=== PATIENT | male | born 1955 | race African-American/Black ===

== ENCOUNTER 2021-12-09 15:24 | Emergency (ER) | payer MEDICARE, MEDICAID ==
[~2021-12-09] VITALS: Ht 177.8 cm; Wt 85.0 kg
[~2021-12-09 15:24] MED LIST: ALBU2.5V13 NEB; AMLO10TA80 PO; CYAN100069 PO; DOCU-138 PO; FOLI-43 PO; HYDR-3927 PO; MEMA5TAB7 PO; MINO2.5T2 PO; PYRI25TA4 PO; RISP05 PO; SENN-257 PO; TEMA15CA PO; TOPUD PO; TRAM50TA3 PO
[2021-12-09 17:27] LABS: BASOPHILS % 0.8 % (0.0-2.0); EOSINOPHILS % 2.8 % (0.0-5.0); HEMATOCRIT. 41.3 % (42.0-52.0); HEMOGLOBIN. 13.5 g/dL (14.0-18.0); LYMPHOCYTES % 19.2 % (20.0-50.0); MEAN CORPUSCULAR HEMOGLOBIN 30.2 pg (28.0-32.0); MEAN CORPUSCULAR VOLUME 92.6 fL (80.0-94.0); MEAN PLATELET VOLUME 8.7 fl (7.4-10.4); MONOCYTES % 10.7 % (2.0-8.0); NEUTROPHILS % 66.5 % (40.0-76.0); PLATELET 139 x1000/uL (130-400); RED BLOOD CELL COUNT 4.46 mill/uL (4.7-6.1); RED CELL DISTRIBUTION WIDTH 15.9 % (11.6-14.6)
[2021-12-09 19:50] VITALS: BP 164/84
== END 2021-12-09 20:56 | disposition home or self-care (01) ==
LOC: ER 15:24
DX: R45.1 Restlessness and agitation (principal); I12.0 Hypertensive chronic kidney disease with stage 5 chronic kidney disease or end stage renal disease; N18.6 End stage renal disease
CPT/HCPCS: 36415; 80048; 85025; 93005; 99284